=== PATIENT | female | born 1990 | race Two or more races ===

== ENCOUNTER 2020-10-11 09:40 | Inpatient (IN) | payer OTHER ==
[2020-10-11] MEDS ORDERED: ELECTROLYTE-148 SOLN 1,000 ML IV SCH (10:00)
[2020-10-11 10:33] LABS: INR 0.95 (0.83-1.09); PROTHROMBIN TIME (PATIENT) 11.7 SEC (9.7-13.0)
[2020-10-11 10:34] LABS: BASO % 0.3 % (0-2.0); EOS % 2.4 % (0-4.5); HEMATOCRIT 32.5 % (32.4-45.2); HEMOGLOBIN 10.8 GM/dL (10.7-15.3); LYMPH % 13.8 % (8-40); MCH 27.4 pg (25.7-33.7); MCHC 33.2 g/dl (32.0-36.0); MEAN CELL VOLUME 82.3 fl (80-96); MEAN PLT VOLUME 9.4 fl (7.5-11.1); MONO % 8.7 % (3.8-10.2); NEUT % 74.8 % (42.8-82.8); PLATELET COUNT 220 K/MM3 (134-434); RBC 3.95 M/mm3 (3.60-5.2); RDW 14.3 % (11.6-15.6)
[2020-10-11 10:36] LABS: ACTIVATED PTT 23.9 SECONDS (25.2-36.5)
[2020-10-11 10:44] VITALS: BMI 31.4
[2020-10-11 10:47] LABS: CALCIUM 8.5 mg/dL (8.5-10.1)
[2020-10-11 10:48] LABS: BLOOD UREA NITROGEN 6.2 mg/dL (7-18)
[2020-10-11 10:51] LABS: CREATININE 0.5 mg/dL (0.55-1.3)
[2020-10-11] MEDS ORDERED: PCA PUMP NR ONE ×2 (11:02→20:46)
[2020-10-11] MEDS ORDERED: FENTANYL/BUPIVACAINE/NS/PF - PCEA - 50 ML DISP.SYRIN EP ONE ×6 (11:02→20:46)
[2020-10-11 11:59] LABS: HIV INTERPRETATION NEGATIVE (NEGATIVE)
[2020-10-11] MEDS ORDERED: NALOXONE HCL 0.4 MG/ML VIAL IVPUSH PRN (12:25)
[2020-10-11] MEDS ORDERED: FENTANYL/BUPIVACAINE/NS/PF - PCEA - 50 ML DISP.SYRIN EP SCH ×2 (12:30→12:55)
[2020-10-11 12:31] LABS: ANISOCYTOSIS 1+; MACROCYTOSIS 0; PLATELET ESTIMATE NORMAL
[2020-10-11] MEDS ORDERED: OXYTOCIN 30 UNITS in 0.9% NS 30 UNIT/500 ML INFUS.BAG IVPB ONE (14:21)
[2020-10-11] MEDS ORDERED: DEXTROSE 5%-LACTATED RINGERS 1,000 ML IV SCH (14:45)
[2020-10-11] MEDS ORDERED: OXYTOCIN 30 UNITS in 0.9% NS 30 UNIT/500 ML INFUS.BAG IVPB SCH (14:45)
[2020-10-11] MEDS ORDERED: OXYTOCIN 20 UNITS in 0.9% NS 20 UNIT/1,000 ML INFUS.BAG IV ONE ×2 (21:36→23:23)
[2020-10-11] MEDS ORDERED: PHENYLEPHRINE HCL 10 MG/1 ML SINGLE DOSE VIAL ONE (21:38)
[2020-10-11] MEDS ORDERED: ePHEDrine SULFATE 50 MG/1 ML AMPULE ONE (21:40)
[2020-10-11] MEDS ORDERED: ceFAZolin SODIUM 1 GM VIAL ONE (21:41)
[2020-10-11] MEDS ORDERED: ONDANSETRON 4 MG/2 ML VIAL IVPUSH PRN (21:51)
[2020-10-11] MEDS ORDERED: OXYTOCIN 10 UNITS/ML VIAL ONE (22:21)
[2020-10-11] MEDS ORDERED: DEXAMETHASONE SOD PHOSPHATE 4 MG/1 ML VIAL ONE (22:53)
[2020-10-11] MEDS ORDERED: ONDANSETRON 4 MG/2 ML VIAL ONE (22:53)
[2020-10-11] MEDS ORDERED: KETOROLAC TROMETHAMINE 30 MG/1 ML VIAL ONE (22:53)
[2020-10-11] MEDS ORDERED: ACETAMINOPHEN 325 MG TABLET (FP) PO PRN (23:33)
[2020-10-11] MEDS ORDERED: oxyCODONE HCL 5 MG TABLET PO PRN (23:33)
[2020-10-11] MEDS ORDERED: METHYLERGONOVINE MALEATE 0.2 MG/1 ML AMP IM PRN (23:33)
[2020-10-11] MEDS ORDERED: OXYTOCIN 20 UNITS in 0.9% NS 20 UNIT/1,000 ML INFUS.BAG IV SCH (23:45)
[2020-10-12] MEDS: IBUPROFEN 800 MG/8 ML IJ IVPB PRN ×2 (00:55→06:12)
[2020-10-12 09:34] LABS: BASO % 0.1 % (0-2.0); HEMATOCRIT 25.3 % (32.4-45.2); HEMOGLOBIN 8.6 GM/dL (10.7-15.3); LYMPH % 4.5 % (8-40); MCH 27.8 pg (25.7-33.7); MCHC 33.8 g/dl (32.0-36.0); MEAN CELL VOLUME 82.2 fl (80-96); MEAN PLT VOLUME 9.8 fl (7.5-11.1); MONO % 7.2 % (3.8-10.2); NEUT % 88.2 % (42.8-82.8); PLATELET COUNT 211 K/MM3 (134-434); RBC 3.08 M/mm3 (3.60-5.2); RDW 14.3 % (11.6-15.6); WHITE BLOOD COUNT 26.7 K/mm3 (4.0-10.0)
[2020-10-12] MEDS: PRENATAL VITAMINS W/ FOLIC ACID TABLET (FP) PO SCH (11:16)
[2020-10-12 12:11] LABS: ANISOCYTOSIS 1+; MACROCYTOSIS 0; PLATELET ESTIMATE NORMAL
[2020-10-12] MEDS: IBUPROFEN 600 MG TABLET (FP) PO PRN ×2 (13:57→21:59)
[2020-10-12] MEDS: SIMETHICONE 80 MG TAB.CHEW (FP) PO PRN ×2 (13:58→22:02)
[2020-10-12] MEDS: ACETAMINOPHEN 325 MG TABLET (FP) PO PRN ×2 (13:58→21:58)
[2020-10-12] MEDS: SENNOSIDES/DOCUSATE COMBO (SENNA PLUS) TABLET (UD) PO PRN (21:58)
[2020-10-12] MEDS: FERROUS SO4 325 MG TABLET (FP) PO SCH (21:58)
[2020-10-12] MEDS ORDERED: BISACODYL 10 MG SUPP.RECT RC PRN (23:34)
[2020-10-13] MEDS: oxyCODONE HCL 5 MG TABLET PO PRN ×2 (05:10→21:12)
[2020-10-13] MEDS: ACETAMINOPHEN 325 MG TABLET (FP) PO PRN ×4 (05:11→21:09)
[2020-10-13] MEDS: IBUPROFEN 600 MG TABLET (FP) PO PRN ×4 (05:13→21:10)
[2020-10-13] MEDS: SIMETHICONE 80 MG TAB.CHEW (FP) PO PRN ×2 (05:14→12:13)
[2020-10-13 09:06] LABS: BASO % 0.3 % (0-2.0); EOS % 2.1 % (0-4.5); HEMATOCRIT 24.1 % (32.4-45.2); MCH 27.4 pg (25.7-33.7); MCHC 33.2 g/dl (32.0-36.0); MEAN CELL VOLUME 82.5 fl (80-96); MEAN PLT VOLUME 9.9 fl (7.5-11.1); MONO % 8.8 % (3.8-10.2); NEUT % 77.8 % (42.8-82.8); PLATELET COUNT 171 K/MM3 (134-434); RBC 2.92 M/mm3 (3.60-5.2); RDW 14.3 % (11.6-15.6); WHITE BLOOD COUNT 15.1 K/mm3 (4.0-10.0)
[2020-10-13] MEDS: PRENATAL VITAMINS W/ FOLIC ACID TABLET (FP) PO SCH (09:27)
[2020-10-13] MEDS: FERROUS SO4 325 MG TABLET (FP) PO SCH ×2 (09:27→21:07)
[2020-10-13] MEDS: SENNOSIDES/DOCUSATE COMBO (SENNA PLUS) TABLET (UD) PO PRN (21:07)
[2020-10-14] MEDS: IBUPROFEN 600 MG TABLET (FP) PO PRN (08:13)
[2020-10-14] MEDS: SIMETHICONE 80 MG TAB.CHEW (FP) PO PRN (08:14)
[2020-10-14] MEDS: ACETAMINOPHEN 325 MG TABLET (FP) PO PRN (08:14)
[2020-10-14] MEDS: FERROUS SO4 325 MG TABLET (FP) PO SCH (09:31)
[2020-10-14] MEDS: PRENATAL VITAMINS W/ FOLIC ACID TABLET (FP) PO SCH (09:31)
[2020-10-14 15:48] VITALS: BP 106/71; PULSE 87; TEMP 98.6
== END 2020-10-14 17:40 | disposition home or self-care (01) | DRG 540 ==
LOC: JLDR 09:40 → J3W 10-12 00:29
PROVIDERS: ADMIT Obstetrics & Gynecology; ATTEND Obstetrics & Gynecology
PROC: 10D00Z1 Extraction of Products of Conception, Low, Open Approach (ICD-10-PCS; principal; 2020-10-11)
PROC: 10907ZC Drainage of Amniotic Fluid, Therapeutic from Products of Conception, Via Natural or Artificial Opening (ICD-10-PCS; 2020-10-11)
DX: O62.9 Abnormality of forces of labor, unspecified (principal); O48.0 Post-term pregnancy; O36.63X0 Maternal care for excessive fetal growth, third trimester, not applicable or unspecified; O69.89X0 Labor and delivery complicated by other cord complications, not applicable or unspecified; O69.81X0 Labor and delivery complicated by cord around neck, without compression, not applicable or unspecified; Z3A.40 40 weeks gestation of pregnancy; Z37.0 Single live birth; Z91.018 Allergy to other foods; Z91.010 Allergy to peanuts
CPT/HCPCS: 36415; 80048; 85025; 85610; 85730; 86780; 86850; 86900; 86901; 87389; 88307-TC; C9803; U0003

== ENCOUNTER 2022-05-05 08:34 | Emergency (ER) | payer OTHER ==
[2022-05-05 08:58] VITALS: BP 115/88; PULSE 124; RESP 18; TEMP 97.8; BMI 32.1
[2022-05-05] MEDS ORDERED: diphenhydrAMINE HCL 25 MG CAPSULE (FP) PO ONE ×2 (09:21→09:26)
[2022-05-05] MEDS ORDERED: ONDANSETRON *ODT* 4 MG TABLET SL ONE (09:21)
[2022-05-05] MEDS ORDERED: predniSONE 10 MG TABLET (UD) ONE (09:26)
[2022-05-05] MEDS ORDERED: ONDANSETRON *ODT* 4 MG TABLET ONE (09:26)
[2022-05-05] MEDS ORDERED: predniSONE 20 MG TABLET (UD) ONE (09:26)
[2022-05-05] MEDS ORDERED: predniSONE 20 MG TABLET (UD) PO SCH (10:00)
[2022-05-05] MEDS ORDERED: predniSONE 40 MG, predniSONE 10 MG PO SCH (10:00)
== END 2022-05-05 11:34 | disposition home or self-care (01) ==
LOC: JER 08:34
DX: T78.40XA Allergy, unspecified, initial encounter (principal)
CPT/HCPCS: 99283-25; Q0162